=== PATIENT | male | born 1935 | race Caucasian/White ===

== ENCOUNTER → 2020-08-08 | Outpatient (REF) | payer BC, MEDICARE, OTHER | LOC: M SFHCPLAZ 16:55 | PROVIDERS: ATTEND Physician Assistant | DX: C44.320 Squamous cell carcinoma of skin of unspecified parts of face (principal) | CPT/HCPCS: 11102; 17000; 17003; 88305; G0463 ==

== ENCOUNTER → 2022-06-25 | Outpatient (REF) | payer MEDICARE | LOC: M SFHCDERM 14:08 | PROVIDERS: ATTEND Physician Assistant | DX: L57.0 Actinic keratosis (principal) ==